=== PATIENT | female | born 1995 | race American Indian/Alaskan Native ===

== ENCOUNTER 2020-12-25 17:47 | Emergency (ER) | payer BC, MEDICAID ==
[2020-12-25] MEDS ORDERED: BUTALB/ACETAMINOPHEN/CAFFEINE TAB PO ONE (18:37)
--- NOTE | 2020-12-25 18:38 | Emergency Department Report ---
ED Headache HPI - General Chief Complaint: Headache Stated Complaint: HEADACHES Time Seen by Provider: 12/25/20 18:19 - History of Present Illness Initial Comments: 25-year-old female with past history of anemia presents to the ER today with complaints of headaches. Patient states that she is been having headaches since July 2020. She denies any head injury. She states that the headache is mainly frontal and retro-orbital. She describes it as a throbbing achy pain. She states that she noticed that the headache is typically starts around 7 AM and goes on till 9 PM. After 9 PM when she falls asleep the headache goes away. She states that the headache was worse yesterday and so for the first time she saw a provider at [facility] today and they recommend that she come to the ER. She states that she did try taking Tylenol but it did not help the pain. She is unable to state what worsens the pain. She denies any associated nausea, vomiting, photophobia, vision changes, URI symptoms, neck pain, fever, chills or any other symptoms at this time. Timing/Duration: other (since July 2020) Quality: achy, throbbing Head Injury Location: frontal, other (Retro-orbital) Recent Head Trauma: other (Denies any head trauma) Allergies/Adverse Reactions: Allergies No Known Allergies Allergy (Unverified 12/25/20 18:00) Home Medications: Ambulatory Orders Butalb/Acetaminophen/Caffeine [Fioricet 50-300-40 mg CAP] 1 cap PO Q6HR PRN #12 cap 12/25/20 Fluticasone [Flonase] 2 spray NS QDAY #1 bottle 12/25/20 Loratadine [Claritin] 10 mg PO DAILY #30 tablet 12/25/20 methylPREDNISolone [Medrol 4MG DOSEPAK (21 tabs)] 4 mg PO DAILY #1 tab.ds.pk 12/25/20 ED Review of Systems ROS: Stated complaint: HEADACHES Other details as noted in HPI Comment: All other systems reviewed and negative Constitutional: denies: chills, fever Eyes: denies: eye pain, eye discharge, vision change ENT: denies: ear pain, throat pain, dental pain, hearing loss, epistaxis, congestion Respiratory: denies: cough, shortness of breath, wheezing Cardiovascular: as per HPI Gastrointestinal: denies: abdominal pain, nausea, vomiting, diarrhea, constipation, hematemesis, melena Genitourinary: denies: urgency, dysuria, frequency, hematuria, discharge, abnormal menses, dyspareunia Skin: denies: rash, lesions Neurological: headache. denies: weakness, numbness, paresthesias, confusion, abnormal gait, vertigo Psychiatric: denies: anxiety, depression Hematological/Lymphatic: denies: easy bleeding, easy bruising ED Past Medical Hx - Past Medical History Previous Medical History?: Yes Additional medical history: headache, Vaginal delivery - Surgical History Past Surgical History?: No - Social History Smoking Status: Never Smoker Substance Use Type: Alcohol - Medications Home Medications: Home Medications Medication Instructions Recorded Confirmed Last Taken Type Butalb/Acetaminophen/Caffeine 1 cap PO Q6HR PRN #12 cap 12/25/20 Unknown Rx [Fioricet 50-300-40 mg CAP] Fluticasone [Flonase] 2 spray NS QDAY #1 bottle 12/25/20 Unknown Rx Loratadine [Claritin] 10 mg PO DAILY #30 tablet 12/25/20 Unknown Rx methylPREDNISolone [Medrol 4MG 4 mg PO DAILY #1 tab.ds.pk 12/25/20 Unknown Rx DOSEPAK (21 tabs)] ED Physical Exam - General Limitations: No Limitations General appearance: alert, in no apparent distress - Head Head exam: Present: atraumatic, normocephalic, normal inspection - Eye Eye exam: Present: normal appearance, PERRL, EOMI Pupils: Present: normal accommodation - ENT ENT exam: Present: normal exam, mucous membranes moist - Neck Neck exam: Present: normal inspection, full ROM. Absent: meningismus - Respiratory Respiratory exam: Present: normal lung sounds bilaterally. Absent: respiratory distress, wheezes, rales, rhonchi, stridor - Cardiovascular Cardiovascular Exam: Present: regular rate, normal rhythm, normal heart sounds - Neurological Exam Neurological exam: Present: alert, oriented X3, CN II-XII intact, normal gait. Absent: motor sensory deficit - Psychiatric Psychiatric exam: Present: normal affect, normal mood - Skin Skin exam: Present: intact ED Course Vital Signs 12/25/20 12/25/20 12/25/20 18:01 18:03 19:56 Temperature 98.6 F 98.6 F 98.1 F Pulse Rate 64 62 62 Respiratory 16 18 Rate Blood Pressure 114/67 114/67 114/64 O2 Sat by Pulse 100 16 L 100 Oximetry ED Medical Decision Making - Lab Data Result diagrams: 12/25/20 18:56 12/25/20 18:56 - Radiology Data Radiology results: report reviewed Patient: MIYA KOO MR#: [id number] 720 : 1995 Acct:[id number] Age/Sex: 25 / F ADM Date: 12/25/20 Loc: ED Attending Dr: Ordering Physician: CARLITO PANDYA Date of Service: 12/25/20 Procedure(s): CT head/brain wo con Accession Number(s): [id number] cc: CARLITO PANDYA CT head/brain wo con INDICATION / CLINICAL INFORMATION: 25 years Female; GARCIA since july 2020. TECHNIQUE: Routine CT head without contrast. All CT scans at this location are performed using CT dose reduction for ALARA by means of automated exposure control. COMPARISON: None. FINDINGS: BRAIN / INTRACRANIAL CONTENTS: The brain parenchyma demonstrate appropriate attenuation. The ventricular system is within normal limits in size and configuration. There is no clear CT evidence of acute intracranial hemorrhage or significant mass effect. ORBITS: No significant abnormality of visualized orbits. SINUSES / MASTOIDS: There is mild opacification along the visualized posterior right ethmoid and medial right maxillary sinuses. CRANIOCERVICAL JUNCTION: No significant abnormality. ADDITIONAL FINDINGS: None. IMPRESSION: 1. There is no CT evidence of acute intracranial process. Signer Name: Sushant Garnica MD Signed: 12/25/2020 7:39 PM Workstation Name: [id number] Transcribed By: MR Dictated By: Sushant Garnica MD Electronically Authenticated By: Sushant Garnica MD Signed Date/Time: 12/25/201938 DD/ 36 TD/TT: - Medical Decision Making Labs reviewed and unremarkable. CT head negative. VS stable. The patient presented to the emergency department with a headache. The patient is now resting comfortably and, is alert, talkative, interactive and in no distress. The patient appears well and is able to tolerate p.o. fluids. The repeat examination is unremarkable and benign. The patient is neurologically intact, has a normal mental status, and is ambulatory in the ER. The history, exam, diagnostic testing and the patient's current condition does not suggest meningitis, stroke, sepsis, subarachnoid hemorrhage, intracranial bleeding, encephalitis, temporal arteritis or other significant pathology to warrant further testing, continued ED treatment, admission, neurological consultation or other specialist evaluation at this point. The patient's condition is stable and appropriate for discharge. The patient will pursue further outpatient evaluation with the primary care physician. Critical care attestation.: If time is entered above; I have spent that time in minutes in the direct care of this critically ill patient, excluding procedure time. ED Disposition Clinical Impression: Chronic headache, Sinus disease Disposition: DC- TO HOME OR SELFCARE Is pt being admited?: No Does the pt Need Aspirin: No Condition: Stable Instructions: General Headache Without Cause, [id number], Sinus Headache, [id number] Additional Instructions: Use the flonase, medrol dose pack and claritin as prescribed. Take the pain medication as needed for headache. Follow up with your PCP at the [facility] next week. You may need referral to ENT and or Neurologist if GARCIA persist. Return to ED if symptoms worsens or changes. Prescriptions: Loratadine [Claritin] 10 mg PO DAILY #30 tablet Butalb/Acetaminophen/Caffeine [Fioricet 50-300-40 mg CAP] 1 cap PO Q6HR PRN #12 cap PRN Reason: Headache Fluticasone [Flonase] 2 spray NS QDAY #1 bottle methylPREDNISolone [Medrol 4MG DOSEPAK (21 tabs)] 4 mg PO DAILY #1 tab.ds.pk Referrals: PRIMARY CARE, [Primary Care Provider] - 3-5 Days Time of Disposition: 19:52
[2020-12-25 19:12] LABS: Bilirubin,Urine NEG (Negative); Blood,Urine NEG (Negative); Color,Urine Yellow (Yellow); Mucus,Urine 3+ /HPF
[2020-12-25 19:22] LABS: Basophils % (Auto) 0.7 % (0.0-1.8); Eosinophils # (Auto) 0.2 K/mm3 (0.0-0.4); Eosinophils % (Auto) 2.4 % (0.0-4.3); Hematocrit 34.5 % (30.3-42.9); Hemoglobin 10.9 gm/dl (10.1-14.3); Lymphocytes # (Auto) 1.9 K/mm3 (1.2-5.4); Lymphocytes % (Auto) 27.2 % (13.4-35.0); Mean Corpuscular HGB Conc 32 % (30-34); Mean Corpuscular Volume 78 fl (79-97); Monocytes # (Auto) 0.6 K/mm3 (0.0-0.8); Monocytes % (Auto) 8.2 % (0.0-7.3); Platelet Count 198 K/mm3 (140-440); Red Blood Count 4.41 M/mm3 (3.65-5.03); Red Cell Distribution Width 15.8 % (13.2-15.2)
[2020-12-25 19:42] LABS: Alanine Aminotransferase 16 units/L (7-56); Albumin 4.4 g/dL (3.9-5); Blood Urea Nitrogen 15 mg/dL (7-17); Calcium 8.6 mg/dL (8.4-10.2); Hemolysis Index 2
[2020-12-25 19:43] LABS: BUN/Creatinine Ratio 25
--- NOTE | 2020-12-25 19:43 | Cat Scan Report ---
CT head/brain wo con INDICATION / CLINICAL INFORMATION: 25 years Female; GARCIA since july 2020. TECHNIQUE: Routine CT head without contrast. All CT scans at this location are performed using CT dos e reduction for ALARA by means of automated exposure control. COMPARISON: None. FINDINGS: BRAIN / INTRACRANIAL CONTENTS: The brain parenchyma demonstrate appropriate attenuation. The ventricu lar system is within normal limits in size and configuration. There is no clear CT evidence of acute intracranial hemorrhage or significant mass effect. ORBITS: No significant abnormality of visualized orbits. SINUSES / MASTOIDS: There is mild opacification along the visualized posterior right ethmoid and medi al right maxillary sinuses. CRANIOCERVICAL JUNCTION: No significant abnormality. ADDITIONAL FINDINGS: None. IMPRESSION: 1. There is no CT evidence of acute intracranial process. Signer Name: Sushant Garnica MD Signed: 12/25/2020 7:39 PM Workstation Name: [id number]
[2020-12-25 20:00] VITALS: BP 114/64
== END 2020-12-25 20:30 | disposition home or self-care (01) ==
LOC: ED 17:47
DX: J32.9 Chronic sinusitis, unspecified (principal); R51.9 Headache, unspecified; Z79.899 Other long term (current) drug therapy
CPT/HCPCS: 36415; 70450; 80053; 81001; 84703; 85025